=== PATIENT | female | born 1965 | race African-American/Black ===

== ENCOUNTER 2018-12-16 15:29 | Inpatient (IN) | payer OTHER ==
[2018-12-16 18:03] VITALS: BMI 24.7
--- NOTE | 2018-12-16 18:49 | HP ---
CIWA Score Nausea/Vomitin-No Nausea/No Vomiting Muscle Tremors: 1-None Visible, but [place] Anxiety: 1-Mildly Anxious Agitation: 0-Normal Activity Paroxysmal Sweats: 1-Minimal Palms Moist Orientation: 0-Oriented Tacttile Disturbances: 0-None Auditory Disturbances: 0-None Visual Disturbances: 0-None Headache: 0-None Present CIWA-Ar Total Score: 3 - Admission Criteria OASAS Guidelines: Admission for Medically Managed Detox: Requires at least one of the followin. CIWA greater than 12 2. Seizures within the past 24 hours 3. Delirium tremens within the past 24 hours 4. Hallucinations within the past 24 hours 5. Acute intervention needed for co occurring medical disorder 6. Acute intervention needed for co occurring psychiatric disorder 7. Severe withdrawal that cannot be handled at a lower level of care (continued vomiting, continued diarrhea, abnormal vital signs) requiring intravenous medication and/or fluids 8. Admission ROS [facility] Chief Complaint: detox from EtOH, crack Allergies/Adverse Reactions: Allergies Allergy/AdvReac Type Severity Reaction Status Date / Time No Known Allergies Allergy Verified 12/16/18 17:57 History of Present Illness: 53F w/ phm of HTN presenting to [facility] for detox from EtOH, crack. Never took HTN meds. Drinks up to 12beers daily. Last drink ~0100. Drinks in the morning after washing up. Has blacked out. Denies seizures, tremors, falls onto head. Smokes $ 200-500 crack daily. Last crack at ~0100. Denies heroin, IVDU. Smokes 1pack per 3d. Last detox >10ys prior. Substance free for 20ys from 1996 - 2016. 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 - Ebola screening Have you traveled outside of the country in the last 21 days: No Have you had contact with anyone from an Ebola affected area: No Do you have a fever: No - Review of Systems EENT: denies: Blurred Vision, Double Vision Respiratory: denies: Cough, Wheezing Cardiac: denies: Chest Pain GI: denies: Abdominal Distended, Nausea, Vomiting : denies: Burning, Urgency Neuro: denies: Headache, Dizziness Patient History - Patient Medical History Hx Asthma: No Hx Cancer: No Hx Cardiac Disorders: No Hx Congestive Heart Failure: No Hx Hypertension: Yes Hx Pacemaker: No HX Cerebrovascular Accident: No Hx Seizures: No Hx Diabetes: No Hx Gastrointestinal Disorders: Yes (GERD) Hx Renal Disease (ESRD): No Hx Thyroid Disease: No - Patient Surgical History Hx Appendectomy: Yes Other Surgical History: oophorectomy - Smoking Cessation Smoking history: Current every day smoker Have you smoked in the past 12 months: Yes Aproximately how many cigarettes per day: 7 Initiated information on smoking cessation: No - Substances abused Alcohol Substance route: Oral Frequency: Daily Amount used: 3 liters of Vodka/1 six pack 12 oz beers/day Age of first use: 18 Date of last use: 12/15/18 Cocaine Substance route: Smoking Frequency: Daily Amount used: $300 Age of first use: 26 Date of last use: 12/15/18 Family Disease History - Family Disease History Family Disease History: Other: Mother (HTN) Admission Physical Exam [facility] - Vital Signs Vital Signs: Vital Signs - 24 hr 12/16/18 17:58 Temperature 98.3 F Pulse Rate 80 Respiratory 18 Rate Blood Pressure 207/118 H - Physical General Appearance: Yes: No Apparent Distress, Anxious HEENTM: No: Pale Conjunctivae R, Pale Conjunctivae L, Scleral Ictenus R, Scleral Ictenus L Respiratory: Yes: Lungs Clear, No Respiratory Distress. No: Respiratory Distress Neck: Yes: Supple, Trachea in good position Cardiology: Yes: Regular Rate, S1, S2 Abdominal: Yes: Non Tender, Soft. No: Distended, Guarding, Tenderness Musculoskeletal: Yes: full range of Motion Extremities: Yes: Normal Inspection, Other (mild swelling of distal right foot) Neurological: Yes: Fully Oriented Integumentary: Yes: Dry, Warm Breathalyzer - Breathalyzer Breathalyzer: 0 Urine Drug Screen - Test Device Lot number: [id number] Expiration date: 08/28/20 - Control Is test valid?: Yes - Results Drug screen NEGATIVE: Yes Urine drug screen results: [facility]-Cocaine Inpatient Rehab Admission - Rehab Decision to Admit Inpatient rehab admission?: No
[2018-12-16] MEDS ORDERED: ACETAMINOPHEN 325 MG TABLET (FP) PO PRN (19:04)
[2018-12-16] MEDS ORDERED: MAGNESIUM HYDROX 2400MG/30ML ORAL SUSPENSION 30 ML CUP PO PRN (19:04)
[2018-12-16] MEDS ORDERED: IBUPROFEN 400 MG TABLET (FP) PO PRN (19:04)
[2018-12-16] MEDS ORDERED: guaiFENesin 200 MG/10 ML 10 ML UNIT-DOSE CUPS PO PRN (19:04)
[2018-12-16] MEDS ORDERED: P-EPHED 60MG/TRIPROLIDI 2.5MG TABLET PO PRN (19:04)
[2018-12-16] MEDS ORDERED: MAG HYDROX/AL HYDROX/SIMETH 30 ML UNIT-DOSE CUP PO PRN (19:04)
[2018-12-16] MEDS ORDERED: MENTHOL/PHENOL 1 EACH UD MM PRN (19:04)
[2018-12-16] MEDS ORDERED: MAGNESIUM CITRATE 300 ML BOTTLE PO PRN (19:04)
[2018-12-16] MEDS ORDERED: LOPERAMIDE HCL 2 MG CAPSULE PO PRN (19:04)
[2018-12-16] MEDS ORDERED: NICOTINE POLACRILEX 2 MG GUM BC PRN (19:04)
--- NOTE | 2018-12-16 19:05 | PN ---
Teaching Attending Note Name of Resident: Vince Quinones ATTENDING PHYSICIAN STATEMENT I saw and evaluated the patient. I reviewed the resident's note and discussed the case with the resident. I agree with the resident's findings and plan as documented. SUBJECTIVE: 53 yo with HTN- not taking meds, here for rehab from alcohol use disorder and cocaine use disorder- last drink this am. 12 beers/day OBJECTIVE: Vital Signs - 24 hr 12/16/18 17:58 Temperature 98.3 F Pulse Rate 80 Respiratory 18 Rate Blood Pressure 207/118 H alert and oriented non tremulous ASSESSMENT AND PLAN: pt to be admitted to rehab for alcohol/cocaine use disorder HTN- lisinopril now and clonidine prn
[2018-12-16] MEDS ORDERED: LISINOPRIL 20 MG TABLET (FP) PO ONE (19:07)
[2018-12-16] MEDS: cloNIDine HCL 0.1 MG TABLET PO SCH ×2 (19:55→23:21)
[2018-12-16] MEDS ORDERED: hydrOXYzine PAMOATE 25 MG CAPSULE (FP) PO PRN (21:14)
[2018-12-16] MEDS: THIAMINE HCL 100 MG TABLET (FP) PO SCH (21:53)
[2018-12-17] MEDS: cloNIDine HCL 0.1 MG TABLET PO PRN (06:53)
[2018-12-17] MEDS: PRENATAL VITAMINS W/ FOLIC ACID TABLET (FP) PO SCH (09:06)
[2018-12-17 11:31] LABS: HEMATOCRIT 36.6 % (32.4-45.2); HEMOGLOBIN 12.1 GM/dL (10.7-15.3); MCH 30.4 pg (25.7-33.7); MEAN CELL VOLUME 92.3 fl (80-96); MEAN PLT VOLUME 9.1 fl (7.5-11.1); PLATELET COUNT 239 K/MM3 (134-434); RBC 3.97 M/mm3 (3.60-5.2); RDW 14.6 % (11.6-15.6); WHITE BLOOD COUNT 4.7 K/mm3 (4.0-10.0)
[2018-12-17 11:46] LABS: BILIRUBIN,TOTAL 0.4 mg/dL (0.2-1); BLOOD UREA NITROGEN 16.3 mg/dL (7-18); CALCIUM 9.3 mg/dL (8.5-10.1); CREATININE 1.2 mg/dL (0.55-1.3); TOT PROT 6.7 g/dl (6.4-8.2)
--- NOTE | 2018-12-17 13:16 | PN ---
S Progress Note (SOAP) Subjective: c/o pain in right foot. States she injured it before she was admitted, but does not know how because she was intoxicated. Objective: General: No apparent distress MSK: full weight bearing, but difficulty bending toes of the right foot. Extremities; +pedal pulses, brisk capillary refill skin: color equal bilaterally feet, warm and dry. 12/17/18 13:14 Assessment: injury of unknown origin, right foot 12/17/18 13:15 Plan: Encouraged patient to take pain medication as needed, elevate foot. Inform RN if pain or swelling increases. Continue to monitor.
[2018-12-17] MEDS: THIAMINE HCL 100 MG TABLET (FP) PO SCH (21:38)
[2018-12-17] MEDS: MELATONIN 5 MG TABLETS PO PRN (21:39)
[2018-12-18] MEDS: cloNIDine HCL 0.1 MG TABLET PO PRN ×2 (06:20→18:24)
[2018-12-18] MEDS: PRENATAL VITAMINS W/ FOLIC ACID TABLET (FP) PO SCH (10:03)
--- NOTE | 2018-12-18 10:45 | PN ---
[facility] Progress Note Note: Pt requests result review. Pt also reports Hx of PPD+ in the and reports "They gave me pills for 6 months and [facility] and they said i was ok". However, Pt was given ppd inoculation on right arm on admission and reports slight redness, severe itchiness and small macular rash on the site. Vital Signs - 24 hr 12/18/18 12/18/18 12/18/18 07:49 07:56 09:37 Temperature 98.1 F 98.1 F Pulse Rate 70 62 66 Respiratory 18 18 Rate Blood Pressure 177/109 H 142/89 130/80 Laboratory Tests 12/17/18 12/17/18 12/17/18 08:15 08:15 08:15 WBC 4.7 RBC 3.97 Hgb 12.1 Hct 36.6 MCV 92.3 MCH 30.4 MCHC 33.0 RDW 14.6 Plt Count 239 MPV 9.1 Sodium 143 Potassium 4.0 Chloride 110 H Carbon Dioxide 25 Anion Gap 8 BUN 16.3 Creatinine 1.2 Est GFR (CKD-EPI)AfAm 60.60 Est GFR (CKD-EPI)NonAf 52.28 Random Glucose 119 H Calcium 9.3 Total Bilirubin 0.4 AST 12 L ALT 19 Alkaline Phosphatase 84 Total Protein 6.7 Albumin 3.0 L RPR Titer Nonreactive HIV 1&2 Antibody Screen HIV P24 Antigen 12/17/18 08:15 WBC RBC Hgb Hct MCV MCH MCHC RDW Plt Count MPV Sodium Potassium Chloride Carbon Dioxide Anion Gap BUN Creatinine Est GFR (CKD-EPI)AfAm Est GFR (CKD-EPI)NonAf Random Glucose Calcium Total Bilirubin AST ALT Alkaline Phosphatase Total Protein Albumin RPR Titer HIV 1&2 Antibody Screen Negative HIV P24 Antigen Negative Labs noted Right forearm slighlt red with macular rash of induration A/P Labs grossly wnl Hx ppd+ Plan:cold compress to area as directed for relief of itch CXR for hx PPD+ today
--- NOTE | 2018-12-18 14:14 | EKG ---
Test Reason : Blood Pressure : / mmHG Vent. Rate : 070 BPM Atrial Rate : 070 BPM P-R Int : 134 ms QRS Dur : 088 ms QT Int : 480 ms P-R-T Axes : 056 028 049 degrees QTc Int : 518 ms NORMAL SINUS RHYTHM VOLTAGE CRITERIA FOR LEFT VENTRICULAR HYPERTROPHY PROLONGED QT ABNORMAL ECG NO PREVIOUS ECGS AVAILABLE Confirmed by PAT NGO MD ([id number]) on 12/18/2018 2:14:28 PM Referred By: Confirmed By:PAT NGO MD
[2018-12-18] MEDS ORDERED: cloNIDine HCL 0.1 MG TABLET PO ONE (21:41)
--- NOTE | 2018-12-18 21:51 | PN ---
S Progress Note Note: Called to see patient w/ B/P: 173/114. Patient denies CP/SOB/BONILLA/Neuro changes. Vital Signs 12/18/18 21:30 Pulse Rate 74 Respiratory 18 Rate Blood Pressure 166/105 H Alert and oriented. MORRISSEY. Lungs CTA. HR: RR; Cardiac murmur heard on PE. 12/17/18 EKG reviewed. No edema. Plan: Stat dose CloNidine 0.2 mg given. Will start on Lisinopril 10 mg PO daily. Encouraged to notify staff of any side effects. Discussed w/ patient the risks r/t untreated HTN. Discussed importance of f/u w/ PCP upon discharge. (Patient verbalized an understanding and stated will f/u with doctor when discharged.) Will decrease Vistaril to 10 mg PO q4h prn, instead of 25 mg.
[2018-12-18] MEDS: MELATONIN 5 MG TABLETS PO PRN (22:06)
[2018-12-18] MEDS: THIAMINE HCL 100 MG TABLET (FP) PO SCH (22:07)
[2018-12-19] MEDS: LISINOPRIL 10 MG TABLET (FP) PO SCH (09:34)
[2018-12-19] MEDS: PRENATAL VITAMINS W/ FOLIC ACID TABLET (FP) PO SCH (09:34)
[2018-12-19] MEDS: cloNIDine HCL 0.1 MG TABLET PO PRN (19:13)
[2018-12-19] MEDS: THIAMINE HCL 100 MG TABLET (FP) PO SCH (21:27)
[2018-12-19] MEDS: hydrOXYzine HCL 10 MG TABLET PO PRN (22:22)
[2018-12-19] MEDS: MELATONIN 5 MG TABLETS PO PRN (22:22)
[2018-12-19 22:27] LABS: EPI CELLS 17.9 /HPF (0-5/HPF); HYALINE CASTS 4 /lpf (0-8); PH,URINE 6.5 (5.0-8.0); URINE APPEARANCE CLOUDY; URINE BACTERIA 795.2 /hpf (NEGATIVE); URINE BILIRUBIN NEGATIVE (NEGATIVE); URINE COLOR YELLOW; URINE GLUCOSE (UA) NEGATIVE (NEGATIVE); URINE KETONE NEGATIVE (NEGATIVE); URINE LEUK ESTERASE 1+ (NEGATIVE); URINE NITRITE NEGATIVE (NEGATIVE); URINE PROTEIN NEGATIVE (NEGATIVE); URINE RBC 1 /hpf (0-4); URINE UROBILINOGEN 0.2 mg/dL (0.2-1.0); URINE WBC 17 /hpf (0-5)
[2018-12-20] MEDS: cloNIDine HCL 0.1 MG TABLET PO PRN ×3 (01:09→19:06)
[2018-12-20] MEDS: PRENATAL VITAMINS W/ FOLIC ACID TABLET (FP) PO SCH (10:24)
[2018-12-20] MEDS: LISINOPRIL 10 MG TABLET (FP) PO SCH (10:24)
[2018-12-20] MEDS: HYDROCORTISONE 1% TOPICAL CREAM 30 GM TUBE TP PRN (12:51)
[2018-12-20] MEDS: MELATONIN 5 MG TABLETS PO PRN (21:16)
[2018-12-20] MEDS: hydrOXYzine HCL 10 MG TABLET PO PRN (21:18)
[2018-12-20] MEDS ORDERED: PT OWN MED DRAWER 7, Y5N ONE (21:18)
[2018-12-20] MEDS: THIAMINE HCL 100 MG TABLET (FP) PO SCH (21:18)
[2018-12-21] MEDS: cloNIDine HCL 0.1 MG TABLET PO PRN ×3 (01:37→15:14)
[2018-12-21] MEDS: PRENATAL VITAMINS W/ FOLIC ACID TABLET (FP) PO SCH (10:18)
[2018-12-21] MEDS: LISINOPRIL 10 MG TABLET (FP) PO SCH (10:18)
[2018-12-21] MEDS: COLLOIDAL OATMEAL 1 BAR EACH TP PRN (10:19)
[2018-12-21] MEDS: HYDROCORTISONE 1% TOPICAL CREAM 30 GM TUBE TP PRN ×2 (10:19→21:33)
[2018-12-21] MEDS ORDERED: PT OWN MED DRAWER 7, Y5N ONE (15:21)
[2018-12-21] MEDS: THIAMINE HCL 100 MG TABLET (FP) PO SCH (21:31)
[2018-12-21] MEDS: MELATONIN 5 MG TABLETS PO PRN (21:32)
[2018-12-22] MEDS: cloNIDine HCL 0.1 MG TABLET PO PRN ×2 (06:17→21:17)
[2018-12-22] MEDS ORDERED: PT OWN MED DRAWER 7, Y5N ONE ×2 (06:17→21:37)
[2018-12-22] MEDS: HYDROCORTISONE 1% TOPICAL CREAM 30 GM TUBE TP PRN (06:17)
[2018-12-22] MEDS: PRENATAL VITAMINS W/ FOLIC ACID TABLET (FP) PO SCH (10:44)
[2018-12-22] MEDS: LISINOPRIL 10 MG TABLET (FP) PO SCH (10:44)
[2018-12-22] MEDS: THIAMINE HCL 100 MG TABLET (FP) PO SCH (21:15)
[2018-12-23] MEDS: cloNIDine HCL 0.1 MG TABLET PO PRN ×3 (01:24→21:24)
[2018-12-23] MEDS: MELATONIN 5 MG TABLETS PO PRN ×2 (01:25→21:28)
[2018-12-23] MEDS: PRENATAL VITAMINS W/ FOLIC ACID TABLET (FP) PO SCH (09:54)
[2018-12-23] MEDS: LISINOPRIL 10 MG TABLET (FP) PO SCH (09:54)
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
--- NOTE | 2018-12-23 10:30 | PN ---
[facility] Progress Note (SOAP) Subjective: Patient c/o of pain, itchiness, redness, and swelling right forearm. Was given PPD in that location although she reported a Hx of +PPD in . Was seen previously for redness and itchiness at the site, but appeared to be expected reaction with a +PPD. This has not resolved and appears to have gotten worse. Objective: PE: Appearance: no apparent distress, Skin: Right forearm- PPD inoculation site raised, red, tender, excoriated, with two areas where the upper layer of dermis removed. Tender to palpation. 12/23/18 10:28 Vital Signs (72 hours) 12/20/18 12/20/18 12/21/18 15:44 23:00 02:02 Temperature 98 F Pulse Rate 65 75 Respiratory 18 18 Rate Blood Pressure 147/80 151/92 155/98 12/21/18 12/21/18 12/21/18 03:30 06:00 10:00 Temperature 98.1 F Pulse Rate 75 69 Respiratory 18 18 Rate Blood Pressure 160/90 107/72 12/21/18 12/21/18 12/22/18 15:12 23:00 03:00 Temperature 97.7 F Pulse Rate 73 82 74 Respiratory 18 Rate Blood Pressure 146/79 167/82 145/92 12/22/18 12/22/18 12/22/18 07:19 09:59 22:04 Temperature 97.8 F Pulse Rate 64 64 73 Respiratory 18 18 Rate Blood Pressure 126/83 132/84 155/84 12/22/18 12/23/18 12/23/18 23:50 02:00 06:20 Temperature 98.2 F 97.8 F Pulse Rate 71 74 61 Respiratory 18 18 18 Rate Blood Pressure 125/71 152/89 156/94 12/23/18 09:58 Temperature Pulse Rate 63 Respiratory Rate Blood Pressure 112/65 Assessment: cellulitis, PPD inoculation site 12/23/18 10:29 Plan: keflex started.
[2018-12-23] MEDS: CEPHALEXIN MONOHYDRATE 500 MG CAPSULE (UD) PO SCH (21:25)
[2018-12-23] MEDS: THIAMINE HCL 100 MG TABLET (FP) PO SCH (21:27)
[2018-12-23] MEDS: hydrOXYzine HCL 10 MG TABLET PO PRN (21:27)
[2018-12-24] MEDS: cloNIDine HCL 0.1 MG TABLET PO PRN (06:43)
[2018-12-24 07:05] VITALS: TEMP 97.5
[2018-12-24 10:02] VITALS: PULSE 66
[2018-12-24] MEDS: COLLOIDAL OATMEAL 1 BAR EACH TP PRN (10:15)
[2018-12-24] MEDS: PRENATAL VITAMINS W/ FOLIC ACID TABLET (FP) PO SCH (10:15)
[2018-12-24] MEDS: CEPHALEXIN MONOHYDRATE 500 MG CAPSULE (UD) PO SCH (10:15)
[2018-12-24] MEDS: LISINOPRIL 10 MG TABLET (FP) PO SCH (10:16)
[2018-12-24] MEDS ORDERED: PT OWN MED DRAWER 7, Y5N ONE (10:44)
[2018-12-24] MEDS ORDERED: BACITRACIN 15 GM TUBE TOPICAL OINTMENT TP SCH (12:45)
[2018-12-24 13:59] VITALS: BP 138/76
--- NOTE | 2018-12-24 14:30 | DS ---
[facility] Rehab Discharge Summary - [facility] Rehab Discharge Summary Admission Date: 12/16/18 Discharge Date: 12/24/18 - History Present History: Alcohol dependence, Cocaine dependence Pertinent Past History: 53F w/ phm of HTN presented to [facility] for detox from EtOH, crack. Never took HTN meds. Drinks up to 12beers daily. Drinks in the morning after washing up. Has blacked out. Denies seizures, tremors, falls onto head. Smokes $200-500 crack daily. Denies heroin, IVDU. Smokes 1pack per 3d. Last detox >10ys prior. Substance free for 20ys from 1996 - 2016. 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 - Discharge Physical Exam Vital Signs: Vital Signs Temperature 97.5 F L 12/24/18 06:00 Pulse Rate 66 12/24/18 13:59 Respiratory Rate 16 12/24/18 06:00 Blood Pressure 138/76 12/24/18 13:59 O2 Sat by Pulse Oximetry (%) Pertinent Admission Physical Exam Findings: Physical General Appearance: Distressed; Anxious HEENTM:PERRLA, normocephalic Respiratory: Lungs Clear, Neck: Supple, Trachea in good position Cardiology: YS1, S2 Abdominal: Non Tender, Soft +BS Musculoskeletal: Full range of Motion, full weight bearing, steady gait Neurological: CN 2-12 intact, no neurological deficits noted. Integumentary: Dry, Warm, good skin turgor. raised, red, warm, area on forearm. Tender to palpation - Treatment Hospital Course: patient was adherent to her treatment plan and medication regimen. She developed an abscess at the site of her PPD inoculation. It was treated with bacitracin dressings and Keflex. She has been instructed to complete the Keflex and dressing changes until the abscess resolves. She was also hypertensive during her stay, although she does not endorse a hx of taking HTN medications before admission. She will continue with lisinopril and has been advised to follow up with her PCP. - Medication Discharge Medications: Ambulatory Orders Bacitracin - [Bacitracin Topical Ointment -] 1 applic TP DAILY 7 Days #1 tube Cephalexin Monohydrate [Keflex -] 500 mg PO BID 7 Days #14 capsule 12/24/18 Lisinopril [Prinivil] 10 mg PO DAILY #14 tablet 12/24/18 - Medication-Assisted Treatment (MAT) Medication-Assisted Treatment (MAT): No - Discharge Instructions Diet, activity, other medical instructions: Diet: as tolerated Activity: as tolerated Other medical instructions: Please continue dressing changes on right forearm and complete antibiotic. Follow up with PCP to evaluate abscess and HTN. - AMA Did Patient Leave Against Medical Advice: No Additional Comments: Patient is medically stable for discharge and has no acute or urgent medical problems that need immediate attention.
[2018-12-24] MEDS ORDERED: SUVOREXANT 10 MG TABLET PO PRN (22:00)
== END 2018-12-24 15:17 | disposition home or self-care (01) | DRG 772 ==
LOC: YASAS 15:29 → Y3E 19:23
PROVIDERS: ADMIT Neuromusculoskeletal Medicine & OMM; ATTEND Neuromusculoskeletal Medicine & OMM
PROC: HZ42ZZZ Group Counseling for Substance Abuse Treatment, Cognitive-Behavioral (ICD-10-PCS; principal; 2018-12-16)
DX: F14.20 Cocaine dependence, uncomplicated (principal); F17.210 Nicotine dependence, cigarettes, uncomplicated; F19.282 Other psychoactive substance dependence with psychoactive substance-induced sleep disorder; I10 Essential (primary) hypertension; L03.113 Cellulitis of right upper limb; K21.9 Gastro-esophageal reflux disease without esophagitis; R01.1 Cardiac murmur, unspecified; R76.11 Nonspecific reaction to tuberculin skin test without active tuberculosis; S99.921A Unspecified injury of right foot, initial encounter; X58.XXXA Exposure to other specified factors, initial encounter; Y93.9 Activity, unspecified; Y92.9 Unspecified place or not applicable; Z90.722 Acquired absence of ovaries, bilateral; Z86.11 Personal history of tuberculosis
CPT/HCPCS: 36415; 71046-TC-FY; 80053; 81003; 81025; 82962; 85027; 86593; 87389; 93005; 93010; J0735

== ENCOUNTER 2022-10-11 10:01 | Inpatient (IN) | payer OTHER ==
[2022-10-11 10:32] VITALS: BMI 23.8
[2022-10-11] MEDS ORDERED: P-EPHED 60MG/TRIPROLIDI 2.5MG TABLET PO PRN (10:58)
[2022-10-11] MEDS ORDERED: DICYCLOMINE HCL 10 MG CAPSULE PO PRN (10:58)
[2022-10-11] MEDS ORDERED: ONDANSETRON *ODT* 4 MG TABLET SL PRN (10:58)
[2022-10-11] MEDS ORDERED: MAG HYDROX/AL HYDROX/SIMETH 30 ML UNIT-DOSE CUP PO PRN (10:58)
[2022-10-11] MEDS ORDERED: BENZOCAINE/MENTHOL (CHLORASEPTIC ) LOZENGE MM PRN (10:58)
[2022-10-11] MEDS ORDERED: guaiFENesin 600 MG TABLET.ER (FP) PO PRN (10:58)
[2022-10-11] MEDS ORDERED: hydrOXYzine PAMOATE 25 MG CAPSULE (FP) PO PRN (10:58)
[2022-10-11] MEDS ORDERED: POLYETHYLENE GLYCOL (HEALTHYLAX) 3350 17 GM PACKET PO PRN (10:58)
[2022-10-11] MEDS ORDERED: BISMUTH SUBSALICYLATE 524 MG/30 ML PO PRN (10:58)
[2022-10-11] MEDS ORDERED: MAGNESIUM HYDROX 2400MG/30ML ORAL SUSPENSION 30 ML CUP PO PRN (10:58)
[2022-10-11] MEDS ORDERED: BENZONATATE 200 MG CAPSULE PO PRN (10:58)
[2022-10-11] MEDS ORDERED: LOPERAMIDE HCL 2 MG CAPSULE PO PRN (10:58)
[2022-10-11] MEDS ORDERED: IBUPROFEN 400 MG TABLET (FP) PO PRN (10:58)
[2022-10-11] MEDS ORDERED: NICOTINE POLACRILEX 2 MG GUM BUC PRN (10:58)
[2022-10-11] MEDS ORDERED: ALBUTEROL SO4 0.083% IH SOL 2.5 MG/3 ML VIAL.NEB. NEB PRN (11:01)
[2022-10-11] MEDS ORDERED: TORSEMIDE 10 MG TABLET PO SCH (12:45)
[2022-10-11] MEDS ORDERED: BUDESONIDE/FORMETEROL FUMARATE 160/4.5 mcg INHALER IH SCH (12:45)
[2022-10-11] MEDS: TORSEMIDE 10 MG TABLET PO SCH (17:06)
[2022-10-11] MEDS: IBUPROFEN 600 MG TABLET (FP) PO PRN (20:49)
[2022-10-11] MEDS: MELATONIN 5 MG TABLETS PO SCH (22:29)
[2022-10-11] MEDS: THIAMINE HCL 100 MG TABLET (FP) PO SCH (22:30)
[2022-10-11] MEDS: METHOCARBAMOL 500 MG TABLET PO PRN (22:30)
[2022-10-11] MEDS: ATORVASTATIN CA 40 MG TABLET (FP) PO SCH (22:30)
[2022-10-11] MEDS: BUDESONIDE/FORMETEROL FUMARATE 160/4.5 mcg INHALER IH SCH (23:40)
[2022-10-12] MEDS: IBUPROFEN 600 MG TABLET (FP) PO PRN ×3 (05:41→22:49)
[2022-10-12] MEDS: METHOCARBAMOL 500 MG TABLET PO PRN ×3 (05:41→22:50)
[2022-10-12] MEDS: TORSEMIDE 10 MG TABLET PO SCH (09:48)
[2022-10-12] MEDS: BUDESONIDE/FORMETEROL FUMARATE 160/4.5 mcg INHALER IH SCH ×2 (09:49→22:48)
[2022-10-12] MEDS: amLODIPine BESYLATE 10 MG TABLET (FP) PO SCH (09:49)
[2022-10-12] MEDS: PRENATAL VITAMINS W/ FOLIC ACID TABLET (FP) PO SCH (10:46)
[2022-10-12] MEDS: ISOSORBIDE MONONITRATE 30 MG TAB.SR.24H (FP) PO SCH (10:46)
[2022-10-12] MEDS ORDERED: diazePAM 5 MG TABLET PO PRN (11:00)
[2022-10-12] MEDS: diazePAM 5 MG TABLET PO SCH ×3 (11:15→22:50)
[2022-10-12 11:52] LABS: POTASSIUM 4.3 mmol/L (3.5-5.1)
[2022-10-12 11:54] LABS: CALCIUM 8.9 mg/dL (8.5-10.1)
[2022-10-12 11:55] LABS: ALBUMIN 2.6 g/dl (3.4-5.0); BLOOD UREA NITROGEN 19.7 mg/dL (7-18)
[2022-10-12 11:58] LABS: CREATININE 1.2 mg/dL (0.55-1.3)
[2022-10-12 12:00] LABS: BILIRUBIN,TOTAL 0.3 mg/dL (0.2-1); TOT PROT 6.4 g/dl (6.4-8.2)
[2022-10-12 12:03] LABS: HEMATOCRIT 36.7 % (32.4-45.2); HEMOGLOBIN 11.8 GM/dL (10.7-15.3); MCH 28.3 pg (25.7-33.7); MCHC 32.2 g/dl (32.0-36.0); MEAN CELL VOLUME 87.7 fl (80-96); MEAN PLT VOLUME 10.3 fl (7.5-11.1); PLATELET COUNT 224 10^3/uL (134-434); RBC 4.18 M/mm3 (3.60-5.2); WHITE BLOOD COUNT 4.3 K/mm3 (4.0-10.0)
[2022-10-12] MEDS ORDERED: ALBUTEROL SO4 HFA INHALER IH ONE (12:44)
[2022-10-12] MEDS: ALBUTEROL SO4 HFA INHALER IH PRN (15:32)
[2022-10-12] MEDS: AMOX TR/POT CLAV 875MG/125MG TABLETS (FP) PO SCH (17:49)
[2022-10-12] MEDS: ACETAMINOPHEN 325 MG TABLET (FP) PO PRN (17:50)
[2022-10-12] MEDS: MELATONIN 5 MG TABLETS PO SCH (22:48)
[2022-10-12] MEDS: THIAMINE HCL 100 MG TABLET (FP) PO SCH (22:48)
[2022-10-12] MEDS: ATORVASTATIN CA 40 MG TABLET (FP) PO SCH (22:48)
[2022-10-12] MEDS ORDERED: ACETAMINOPHEN 500 MG TABLET (FP) PO ONE (23:05)
[2022-10-13] MEDS ORDERED: ACETAMINOPHEN 325 MG TABLET (FP) PO ONE (00:32)
[2022-10-13] MEDS: IBUPROFEN 600 MG TABLET (FP) PO PRN ×2 (06:00→22:20)
[2022-10-13] MEDS: diazePAM 5 MG TABLET PO SCH ×4 (06:00→22:20)
[2022-10-13] MEDS: METHOCARBAMOL 500 MG TABLET PO PRN ×2 (06:00→22:20)
[2022-10-13] MEDS: BENZOCAINE 20 % GEL TUBE MM PRN ×2 (06:06→22:21)
[2022-10-13] MEDS: AMOX TR/POT CLAV 875MG/125MG TABLETS (FP) PO SCH ×2 (07:14→17:19)
[2022-10-13] MEDS: PRENATAL VITAMINS W/ FOLIC ACID TABLET (FP) PO SCH (10:16)
[2022-10-13] MEDS: TORSEMIDE 10 MG TABLET PO SCH (10:16)
[2022-10-13] MEDS: ISOSORBIDE MONONITRATE 30 MG TAB.SR.24H (FP) PO SCH (10:16)
[2022-10-13] MEDS: amLODIPine BESYLATE 10 MG TABLET (FP) PO SCH (10:17)
[2022-10-13] MEDS: BUDESONIDE/FORMETEROL FUMARATE 160/4.5 mcg INHALER IH SCH ×2 (10:20→22:19)
[2022-10-13] MEDS: ACETAMINOPHEN 325 MG TABLET (FP) PO PRN (17:20)
[2022-10-13] MEDS: ALBUTEROL SO4 HFA INHALER IH PRN (22:19)
[2022-10-13] MEDS: MELATONIN 5 MG TABLETS PO SCH (22:20)
[2022-10-13] MEDS: ATORVASTATIN CA 40 MG TABLET (FP) PO SCH (22:20)
[2022-10-13] MEDS: THIAMINE HCL 100 MG TABLET (FP) PO SCH (22:20)
[2022-10-14] MEDS: IBUPROFEN 600 MG TABLET (FP) PO PRN (05:51)
[2022-10-14] MEDS: METHOCARBAMOL 500 MG TABLET PO PRN (05:52)
[2022-10-14] MEDS ORDERED: diazePAM 5 MG TABLET PO SCH (06:00)
[2022-10-14] MEDS: ALBUTEROL SO4 HFA INHALER IH PRN (06:22)
[2022-10-14 06:45] VITALS: RESP 18
[2022-10-14] MEDS: AMOX TR/POT CLAV 875MG/125MG TABLETS (FP) PO SCH (07:04)
[2022-10-14 09:49] VITALS: BP 149/92; PULSE 79; TEMP 98.1
[2022-10-15] MEDS ORDERED: diazePAM 5 MG TABLET PO SCH (06:00)
[2022-10-16] MEDS ORDERED: diazePAM 5 MG TABLET PO ONE (06:00)
== END 2022-10-14 09:40 | disposition left against medical advice (07) | DRG 770 ==
LOC: YASAS 10:01 → UNDOADMIN 14:18 → Y3N 14:18 → Y6N 10-14 07:03 → UNDODISIN 10-14 09:40
PROVIDERS: ADMIT Allergy & Immunology; ATTEND Surgery
PROC: HZ2ZZZZ Detoxification Services for Substance Abuse Treatment (ICD-10-PCS; principal; 2022-10-11)
DX: F10.230 Alcohol dependence with withdrawal, uncomplicated (principal); F14.20 Cocaine dependence, uncomplicated; F17.210 Nicotine dependence, cigarettes, uncomplicated; F19.282 Other psychoactive substance dependence with psychoactive substance-induced sleep disorder; I11.0 Hypertensive heart disease with heart failure; I50.9 Heart failure, unspecified; E78.00 Pure hypercholesterolemia, unspecified; J45.20 Mild intermittent asthma, uncomplicated; K08.89 Other specified disorders of teeth and supporting structures; Z28.310 Unvaccinated for COVID-19; Z28.9 Immunization not carried out for unspecified reason
CPT/HCPCS: 36415; 71046-TC-FY; 80053; 85027; 86780; 87635; 87811; 93005; 93010